=== PATIENT | female | born 1990 | race Caucasian/White ===

== ENCOUNTER 2018-01-28 12:40 | Emergency (ER) | payer BC ==
--- NOTE | 2018-01-28 13:24 | ED Physician Documentation ---
History of Present Illness - Stated complaint Stated Complaint: FEM - Chief complaint Chief Complaint: General - History obtained from History obtained from: Patient - History of Present Illness Timing: How many hours ago (12) Pain level max: 10 Pain level now: 10 Improved by: nothing Worsened by: nothing - Additonal information Additional information: 27 yo F with pelvic cramping since 0200. States took ibuprofen without relief. States similar symptoms from an IUD 6 years ago. Subsided with removal of IUD. No vaginal bleeding. No itching. States negative STD screen within the past 2 weeks. Review of Systems Ten Systems: 10 systems reviewed and negative Constitutional: denies: Fever, Chills Ears: denies: Ear pain Nose: denies: Rhinorrhea / runny nose, Congestion Throat: denies: Sore throat Cardiac: denies: Chest pain / pressure Respiratory: denies: Cough GI: denies: Vomiting : denies: Dysuria, Frequency, Hesitancy, Discharge, Now EGA Skin: denies: Rash Musculoskeletal: denies: Neck pain, Back pain Neurologic: denies: Headache PD PAST MEDICAL HISTORY - Past Medical History Past Medical History: No - Past Surgical History Past Surgical History: No - Present Medications Home Medications: Ambulatory Orders Medication Instructions Recorded Confirmed Ondansetron Odt [Zofran] 4 mg TL Q6H PRN #10 tablet 01/28/18 Oxycodone HCl/Acetaminophen 1 - 2 each PO Q6H PRN #14 tablet 01/28/18 [Percocet 5-325 mg Tablet] - Allergies Allergies/Adverse Reactions: Allergies Allergy/AdvReac Type Severity Reaction Status Date / Time No Known Drug Allergies Allergy Verified 01/28/18 12:59 - Living Situation Living Situation: reports: With family Living Arrangement: reports: At home - Family History Family history: reports: Non contributory PD ED PE NORMAL - Vitals Vital signs reviewed: Yes - General General: Alert and oriented X 3, No acute distress - HEENT HEENT: Moist mucous membranes - Neck Neck: Supple, no meningeal sign - Cardiac Cardiac: RRR - Respiratory Respiratory: No respiratory distress, Clear bilaterally - Abdomen Abdomen: Soft, Non distended, Other (TTP RLQ, near mcburneys point. no peritoneal signs. + rovsing and obturator signs. ) - Female Female : Pt declined - Back Back: No CVA TTP, No spinal TTP - Derm Derm: Warm and dry - Neuro Neuro: Alert and oriented X 3 - Psych Psych: Normal mood, Normal affect Results - Vitals Vitals: Vital Signs - 24 hr 01/28/18 01/28/18 01/28/18 12:57 14:08 16:22 Temperature 36.6 C Heart Rate 79 76 80 Respiratory 15 16 18 Rate Blood Pressure 123/78 98/64 O2 Saturation 100 99 95 01/28/18 16:34 Temperature Heart Rate 73 Respiratory 18 Rate Blood Pressure 105/73 O2 Saturation 95 Oxygen O2 Source Room air - Labs Labs: Laboratory Tests 01/28/18 01/28/18 01/28/18 13:31 13:42 13:42 WBC 9.1 RBC 4.36 Hgb 13.4 Hct 38.2 MCV 87.6 MCH 30.8 MCHC 35.1 RDW 12.8 Plt Count 250 MPV 7.7 L Neut # 5.9 Lymph # 2.1 [place] # 0.9 Eos # 0.1 Baso # 0.1 Absolute Nucleated RBC 0.00 Nucleated RBC % 0.0 Sodium 137 Potassium 3.4 L Chloride 108 Carbon Dioxide 23 Anion Gap 6.0 BUN 15 Creatinine 0.8 Estimated GFR (MDRD) 85 L Glucose 91 Calcium 8.8 Total Bilirubin 0.7 AST 18 ALT 18 Alkaline Phosphatase 52 Total Protein 7.1 Albumin 4.2 Globulin 2.9 Albumin/Globulin Ratio 1.4 Lipase 32 Urine Color YELLOW Urine Clarity CLEAR Urine pH 7.5 Ur Specific [place] 1.010 Urine Protein NEGATIVE Urine Glucose (UA) NEGATIVE Urine Ketones NEGATIVE Urine Occult Blood NEGATIVE Urine Nitrite NEGATIVE Urine Bilirubin NEGATIVE Urine Urobilinogen 0.2 (NORMAL) Ur Leukocyte Esterase TRACE H Urine RBC None Seen Urine WBC 6-10 H Ur Squamous Epith Cells MANY Squamous H Amorphous Sediment Few Urine Bacteria Moderate H Ur Microscopic Review INDICATED Urine Culture Comments NOT INDICATED Urine HCG, Qual NEGATIVE - Rads (name of study) CT abd/pelvis Radiology: Prelim report reviewed, EMP read contemporaneously, See rad report ( 1.7 cm right adnexal structure suggesting a collapsing ovarian follicle, collapsing cyst or corpus luteum. Small amount of probably hemorrhagic free fluid in the posterior cul-de-sac of the pelvis, such as from a ruptured hemorrhagic cyst. Appendix partially visualized and the visible portion appears normal with no positive finding for acute appendicitis. ) Pelvic US Radiology: Prelim report reviewed, EMP read contemporaneously, See rad report ( Hypoechoic possible cystic lesion adjacent to or arising from the right ovary is suboptimally imaged/visualized. This could represent an ovarian or parovarian cyst, though other lesion not excluded. Recommend pelvic ultrasound in 6-12 weeks for reevaluation to assess for resolution. Alternatively nonemergent outpatient pelvic MR without and with contrast (ovarian protocol) could be considered for further evaluation. Normal endometrial thickness with a somewhat nodular appearing focus along the lower endometrium, possibly representing a small polyp. Normal uterus and left ovary. IUD appears appropriately positioned. ) PD MEDICAL DECISION MAKING - ED course Complexity details: reviewed results, re-evaluated patient, considered differential, d/w patient, d/w family ED course: Patient is a 27-year-old female who presents to the emergency department what appears to be a ruptured right ovarian cyst, likely hemorrhagic. No evidence of torsion. Pain well controlled. Will place on pain medication for home and follow-up closely with her doctor. She is well-appearing, nontoxic. No syncope. Her weight should be 138 pounds, not kilograms. Family will stay with her and bring her back if she worsens. Patient and family counseled regarding signs and symptoms for which I believe and urgent re-evaluation would be necessary. Patient with good understanding of and agreement to plan and is comfortable going home at this time This document was made in part using voice recognition software. While efforts are made to proofread this document, sound alike and grammatical errors may occur. Departure - Departure Disposition: 01 Home, Self Care Clinical Impression: Hemorrhagic cyst of right ovary Condition: Good Instructions: ED Cyst Ovarian Follow-Up: Anastasia Kebede ARNP [Primary Care Provider] - Within 3 Days (for recheck) Prescriptions: Ondansetron Odt [Zofran] 4 mg TL Q6H PRN #10 tablet PRN Reason: Nausea / Vomiting Oxycodone HCl/Acetaminophen [Percocet 5-325 mg Tablet] 1 - 2 each PO Q6H PRN # 14 tablet PRN Reason: pain Comments: This should improve over the next 24-48 hours. Return if you worsen, especially for lightheadedness or dizziness. Do not drink alcohol or drive while on narcotic pain medicine. Note that many narcotic pain relievers also contain tylenol/acetaminophen. Please ensure that your total dose of acetaminophen from all sources does not exceed 3 grams (3000mg) per day. You may constipated on this medication, take a stool softener such as "Colace" twice a day while you are on it. Also recommend a [id number] laxative such as senna or MiraLAX any day that you do not have a bowel movement. If you received narcotic pain medication in the emergency department, do not drive or operate machinery for the next 24 hours. Forms: Activity restrictions Discharge Date/Time: 01/28/18 16:34
[2018-01-28] MEDS ORDERED: HYDROmorphone 1 MG/ML CARPUJECT IVP STA ×2 (13:37→15:02)
[2018-01-28 13:40] LABS: BILIRUBIN,URINE NEGATIVE (NEGATIVE); CLARITY,URINE CLEAR (CLEAR); GLUCOSE, URINE (UA) NEGATIVE (NEGATIVE); KETONES,URINE (UA) NEGATIVE (NEGATIVE); LEUKOCYTE ESTERASE, URINE TRACE (NEGATIVE); NITRITE,URINE NEGATIVE (NEGATIVE); OCCULT BLOOD,URINE NEGATIVE (NEGATIVE); PH,URINE 7.5 PH (5.0-7.5); PROTEIN,URINE NEGATIVE (NEGATIVE); UROBILINOGEN,URINE 0.2 (NORMAL) E.U./dL (NORMAL)
[2018-01-28 13:41] LABS: HCG UR QUAL NEGATIVE
[2018-01-28 13:47] LABS: BASOPHILS # (AUTO) 0.1 10^3/uL (0.0-0.1); BASOPHILS % (AUTO) 0.6 %; EOSINOPHILS # (AUTO) 0.1 10^3/uL (0.0-0.7); EOSINOPHILS % (AUTO) 0.8 %; HGB - HEMOGLOBIN 13.4 g/dL (12.0-16.0); LYMPHOCYTES # (AUTO) 2.1 10^3/uL (1.5-3.5); LYMPHOCYTES % (AUTO) 23.2 %; MEAN CORPUSCULAR HEMOGLOBIN 30.8 pg (27.0-31.0); MEAN CORPUSCULAR HGB CONC 35.1 g/dL (32.0-36.0); MEAN CORPUSCULAR VOLUME 87.6 fL (81.0-99.0); MEAN PLATELET VOLUME 7.7 fL (7.9-10.8); MONOCYTES # (AUTO) 0.9 10^3/uL (0.0-1.0); MONOCYTES % (AUTO) 10.2 %; NEUTROPHILS # (AUTO) 5.9 10^3/uL (1.5-6.6); NEUTROPHILS % (AUTO) 65.2 %; PLT - PLATELET COUNT 250 10^3/uL (130-450); RED BLOOD COUNT 4.36 10^6/uL (4.20-5.40); RED CELL DISTRIBUTION WIDTH 12.8 % (12.0-15.0); WHITE BLOOD COUNT 9.1 x10^3/uL (4.8-10.8)
[2018-01-28] MEDS ORDERED: IOPAMIDOL-300 100 ML VIAL ONE (13:51)
[2018-01-28 13:59] LABS: AMORPHOUS SEDIMENT,UR Few /LPF; BACTERIA,URINE Moderate /HPF (None Seen); RBC,URINE None Seen /HPF (0-5); SQUAMOUS EPITHELIAL CELL,UR MANY Squamous (<= Few)
[2018-01-28 14:00] LABS: ALBUMIN 4.2 g/dL (3.2-5.5); ALBUMIN/GLOBULIN RATIO 1.4 (1.0-2.2); BILIRUBIN,TOTAL 0.7 mg/dL (0.2-1.0); CALCIUM 8.8 mg/dL (8.5-10.3); CREATININE 0.8 mg/dL (0.4-1.0); TOTAL PROTEIN 7.1 g/dL (6.7-8.2)
--- NOTE | 2018-01-28 14:38 | CT Preliminary Report ---
Exam: CT ABDOMEN/PELVIS W/ IMPRESSION: 1. 1.7 cm right adnexal structure suggesting a collapsing ovarian follicle, collapsing cyst or corpus luteum. 2. Small amount of probably hemorrhagic free fluid in the posterior cul-de-sac of the pelvis, such as from a ruptured hemorrhagic cyst. 3. Appendix partially visualized and the visible portion appears normal with no positive finding for acute appendicitis. [facility] S[id number]
--- NOTE | 2018-01-28 14:38 | CT Report ---
EXAM: CT ABDOMEN AND PELVIS EXAM DATE: 01/28/2018 02:10 PM. CLINICAL HISTORY: RLQ abd pain. COMPARISONS: None. TECHNIQUE: Routine helical CT imaging was performed through the abdomen and pelvis. IV contrast: 100M L ISOVUE 300. Enteric contrast: No. Reconstructions: Coronal and sagittal. In accordance with CT protocol optimization, one or more of the following dose reduction techniques w ere utilized for this exam: automated exposure control, adjustment of mA and/or KV based on patient s ize, or use of iterative reconstructive technique. FINDINGS: Lung Bases: Unremarkable. Liver: There is a poorly defined 0.7 cm low-density lesion in the right lobe of the liver on series 3 image 13, too small to characterize. The liver appears otherwise normal. Gallbladder/Bile Ducts: The gallbladder is not seen. Spleen: Normal. Pancreas: Normal. Adrenal Glands: Normal. Kidneys: Normal. No masses or hydronephrosis. Peritoneal Cavity/Bowel: There is increased stool in the colon. The small bowel is normal in caliber. No transition zone. No abscess or free air. The appendix is partially visualized in the visible port ion appears normal. Pelvic Organs: There is an irregular peripherally enhancing structure in the right adnexa measuring 1 .7 x 1.3 cm. There is a small volume of hyperdense free fluid in the posterior cul-de-sac of the pelv is. There is an IUD located centrally within the uterus. The urinary bladder appears unremarkable. Vasculature: No aneurysms or other significant abnormality. Bones: No significant abnormality. Other: None. IMPRESSION: 1. 1.7 cm right adnexal structure suggesting a collapsing ovarian follicle, collapsing cyst or corpus luteum. 2. Small amount of probably hemorrhagic free fluid in the posterior cul-de-sac of the pelvis, such as from a ruptured hemorrhagic cyst. 3. Appendix partially visualized and the visible portion appears normal with no positive finding for acute appendicitis. [facility] Referring Provider Line: [phone] SITE ID: [id number]
[2018-01-28] MEDS ORDERED: IOPAMIDOL-300 100 ML VIAL IVP ONE (14:47)
[2018-01-28] MEDS ORDERED: oxyCOD/ACETAMIN 5 MG/325 MG TABLET PO STA (16:20)
[2018-01-28 16:35] VITALS: BP 105/73
--- NOTE | 2018-01-28 16:43 | Ultrasound Preliminary Report ---
Exam: US PELVIC W/DOPPLER COMPLETE IMPRESSION: 1. Hypoechoic possible cystic lesion adjacent to or arising from the right ovary is suboptimally imag ed/visualized. This could represent a ovarian or parovarian cyst, though other lesion not excluded. R ecommend pelvic ultrasound in 6-12 weeks for reevaluation to assess for resolution. Alternatively non emergent outpatient pelvic MR without and with contrast (ovarian protocol) could be considered for fu rther evaluation. 2. Normal endometrial thickness with a somewhat nodular appearing focus along the lower endometrium, possibly representing a small polyp. 3. Normal uterus and right ovary. IUD appears appropriately positioned. [facility] SITE ID: [id number]
--- NOTE | 2018-01-28 16:49 | Ultrasound Report ---
REVISED: REPORT ORIGINALLY SIGNED ON 01/28/2018@1649; ORDERS LINKED ON 2017 jll EXAM: PELVIC ULTRASOUND EXAM DATE: 01/28/2018 04:15 PM. CLINICAL HISTORY: Right lower quadrant abdominal pain. COMPARISON: None. TECHNIQUE: Realtime transabdominal pelvic scan performed to identify the uterus and adnexa and as an overview of other pelvic structures, followed by transvaginal scan to provide greater detail of the uterus and adnexa, with static image documentation. FINDINGS Uterus: 8.6 x 4.7 x 3.8 cm, volume 80 cc. Anteverted position. Normal overall size and echotexture. Masses: None. Endometrium: 8.3 mm. IUD in situ and appears appropriately positioned. There is a small somewhat more well-defined focus of hyperechogenicity within the lower endometrial canal measuring 0.6 x 0.5 x 0.5 cm without significant internal vascularity by color Doppler, possibly a polyp. Cervix: Unremarkable. Right Ovary: 3.4 x 2.7 x 2.4 cm, volume 12 cc. Normal blood flow. There is an echogenic ovoid lesion with peripheral hypervascularity, likely an involuting corpus luteum measuring 2.3 x 1.4 x 1.7 cm. There is a hypoechoic ovoid lesion involving or immediately adjacent to the right ovary which is suboptimally visualized measuring 5.0 x 2.6 x 5.5 cm. Left Ovary: 3.2 x 1.9 x 1.8 cm cm, volume 6 cc. Normal echotexture and blood flow. Free Fluid: Trace amount of fluid is likely physiologic in the cul-de-sac. Other: Limited submitted images of the right and left kidneys are unremarkable, specifically without hydronephrosis. IMPRESSION 1. Hypoechoic possible cystic lesion adjacent to or arising from the right ovary is suboptimally imaged/visualized. This could represent an ovarian or parovarian cyst, though other lesion not excluded. Recommend pelvic ultrasound in 6-12 weeks for reevaluation to assess for resolution. Alternatively nonemergent outpatient pelvic MR without and with contrast (ovarian protocol) could be considered for further evaluation. 2. Normal endometrial thickness with a somewhat nodular appearing focus along the lower endometrium, possibly representing a small polyp. 3. Normal uterus and right ovary. IUD appears appropriately positioned. [facility] Referring Provider Line: [phone] SITE ID: [id number]
== END 2018-01-28 16:34 | disposition home or self-care (01) ==
LOC: ED 12:40
DX: N83.201 Unspecified ovarian cyst, right side (principal)
CPT/HCPCS: 36415; 74177; 76830; 76856; 80053; 81001; 81025; 83690; 85025; 93975; 96374; 96376; 99283; 99284; A9270; J1170; Q9967; 81003; 87086